=== PATIENT | male | born 1980 | race Hispanic/Latino ===

== ENCOUNTER 2019-06-21 06:02 | Day surgery (SDC) | payer BC ==
[~2019-06-21] VITALS: Ht 177.8 cm; Wt 102.1 kg
[~2019-06-21 06:02] MED LIST: SODIUM CHLORIDE 0.9% 1000ML 1,000 ML IV ONE
[2019-06-21] MEDS ORDERED: PROPOFOL 10 MG/ML 20ML VIAL IV ONE ×2 (06:41)
[2019-06-21] MEDS ORDERED: LIDOCAINE HCL 1% 20 ML VIAL ONE (06:42)
[2019-06-21 07:13] VITALS: BP 120/77
[2019-06-21 09:18] VITALS: BP 101/65
[2019-06-21 09:25] VITALS: BP 108/71
[2019-06-21 09:31] VITALS: BP 116/78
[2019-06-21 09:44] VITALS: BP 109/74
== END 2019-06-21 09:54 | disposition home or self-care (01) ==
LOC: ENDO 06:02 → DAH 06:02 → ENDO 09:54
PROVIDERS: ATTEND Internal Medicine
DX: K92.2 Gastrointestinal hemorrhage, unspecified (principal); K63.5 Polyp of colon; K64.0 First degree hemorrhoids; K92.1 Melena; B96.81 Helicobacter pylori [H. pylori] as the cause of diseases classified elsewhere; G47.30 Sleep apnea, unspecified; Z99.89 Dependence on other enabling machines and devices; E66.9 Obesity, unspecified; Z90.49 Acquired absence of other specified parts of digestive tract
CPT/HCPCS: 45380; A4215; A4221; A4222; A4223; A4606; A4615; A4663; J2704 ×2; J7030